=== PATIENT | male | born 1975 | race Hispanic/Latino ===

== ENCOUNTER 2020-04-07 13:03 | Inpatient (IN) | payer BC, SELFPAY ==
[~2020-04-07 13:03] MED LIST: Iopamidol 370 76% 100 ML VIAL ONE; Iopamidol 370 76% 50 ML VIAL FS ONE
[2020-04-07] MEDS ORDERED: Midazolam HCl 2 mg/2 ml Vial ONE (13:12)
[2020-04-07] MEDS ORDERED: Fentanyl 100 MCG/2 ML VIAL ONE (13:12)
[2020-04-07] MEDS ORDERED: Heparin 10,000 UNITS/ 10 ML VIAL ONE (13:22)
[2020-04-07] MEDS ORDERED: Clopidogrel Bisulfate 300 MG TAB ONE (13:29)
[2020-04-07] MEDS ORDERED: Nitroglycerin 100MG/250ML BOT 250 ML ONE (13:29)
[2020-04-07] MEDS ORDERED: Morphine 2 MG/ML VIAL SLOW IVP PRN (13:56)
[2020-04-07] MEDS ORDERED: Morphine 4 MG/ML VIAL SLOW IVP PRN (13:56)
[2020-04-07] MEDS ORDERED: Nitroglycerin 0.4 MG TAB (25 Tab Bottle) SL PRN (13:56)
[2020-04-07] MEDS ORDERED: Sodium Chloride 0.9% 1,000 ML IV SCH (14:00)
[2020-04-07 18:54] LABS: SARS-CoV-2 PCR by NAA Not Detected (NotDetected)
[2020-04-07 19:09] LABS: Troponin I 18.075 ng/mL (< 0.028)
[2020-04-07 20:58] VITALS: BMI 25.8
[2020-04-07 23:30] LABS: CKMB 59.3 ng/mL (0-6.6); Troponin I 25.614 ng/mL (< 0.028)
--- NOTE | 2020-04-08 05:30 | HP ---
HISTORY: Leo Meza is a 44-year-old male, who was transferred from [place] [facility] with an anterior STEMI. One or two months ago, he stated that he had 30 minutes of chest discomfort. Today at 11:30 a.m., he had onset of central chest pressure. He denied any nausea, vomiting, diaphoresis, or shortness of breath. He went to the emergency room in [place] and was found to have changes consistent with anterior STEMI. He was given 324 mg of aspirin, metoprolol 5 mg, nitroglycerin 0.4 mg sublingually x2, morphine 8 mg, heparin 4000 units followed by 1000 per hour drip and also potassium 40 mEq and transferred via helicopter. He continues to complain of chest discomfort and is transferred immediately to the ammunition assembly laborer upon arrival. PAST MEDICAL HISTORY: Hypertension. He was on medications in the past, but apparently has not taken any for seven or eight years. He denies any history of diabetes or hypercholesterolemia. MEDICATIONS: None. ALLERGIES: NONE. OPERATIONS: None. SOCIAL HISTORY: He smokes a pack per day. He occasionally drinks. FAMILY HISTORY: Negative for coronary artery disease. REVIEW OF SYSTEMS: A 10-point review of systems is unremarkable. PHYSICAL EXAMINATION: VITAL SIGNS: Blood pressure 125/76, pulse 82. HEENT: PERRL. NECK: Supple. CHEST: Expiratory wheezing. CARDIOVASCULAR: S1 and S2 normal without any S3, S4, or murmurs. ABDOMEN: Normal bowel sounds without tenderness. EXTREMITIES: No clubbing, cyanosis, or edema. NEUROLOGIC: Grossly intact. SKIN: Warm and dry. IMAGING DATA: EKG reveals normal sinus rhythm with [address] elevation, V1 through 4. LABORATORY DATA: White count 16,800, hemoglobin 15.7, hematocrit 46.7, platelets 346,000. Sodium 140, potassium 3.1, chloride 107, carbon dioxide 21, BUN 12, creatinine 1.04, glucose 129. Troponin I 0.017. IMPRESSION: 1. Anterior ST-elevation myocardial infarction. 2. Hypertension, noncompliant with medication. 3. Noncompliance probably in the future with medications as readily admitted by the patient. 4. Smoker. PLAN: The situation was discussed with the patient when he arrived. It is recommended he undergo emergent cardiac catheterization. Risks of this were discussed including , myocardial infarction, dye reaction, vascular injury, CVA, transfusion, limb loss, renal loss, etc. Also risk of intervention with PTCA and stent placement were discussed including , myocardial infarction, emergent CABG, restenosis, stent thrombosis, vessel perforation, etc. With great concern about compliance, a bare-metal stent will be placed if required. Job ID: [id number] MTDD
[2020-04-08 06:27] LABS: #Basophils 0.1 thou/uL (0.0-0.2); #Eosinphils 0.2 thou/uL (0.0-0.7); #Lymphocytes 2.1 thou/uL (1.20-3.40); #Monocytes 0.8 thou/uL (0.11-0.59); #Neutrophils 8.4 thou/uL (1.40-6.50); %Basophils 0.8 % (0.0-1.0); %Eosinophils 1.4 % (0.0-10.0); %Monocytes 7.2 % (0.0-10.0); %Neutrophils 72.7 % (42.0-75.0); Hemoglobin 14.5 g/dL (14.0-18.0); Mean Corpuscular Hemoglobin 31.3 pg (27.0-31.0); Mean Platelet Volume 7.2 fL (7.4-10.4); Platelet Count 294 thou/uL (130-400); Red Blood Cell (RBC) Count 4.63 mill/uL (4.70-6.10); White Blood Cell (WBC) Count 11.6 thou/uL (4.8-10.8)
[2020-04-08 06:32] LABS: Hemoglobin A1c 5.2 % (4.0-6.0)
[2020-04-08 06:46] LABS: ALT (SGPT) 30 U/L (8-55); AST (SGOT) 59 U/L (5-34); Albumin 3.9 g/dL (3.5-5.0); Alkaline Phosphatase 100 U/L (40-110); Anion Gap 12 mmol/L (10-20); BUN (Urea Nitrogen) 13 mg/dL (8.9-20.6); Bilirubin, Total 0.6 mg/dL (0.2-1.2); Calc. Creatinine Clearance 102 mL/min (70-130); Calcium 8.5 mg/dL (7.8-10.44); Carbon Dioxide 21 mmol/L (22-29); Cardiac Risk 5.3 (Less than 4.5); Chloride 109 mmol/L (98-107); Cholesterol 208 mg/dl (< 200 Desired); Globulin 2.4 g/dL (2.4-3.5); Glucose 114 mg/dL (70-105); HDL Cholesterol 39 mg/dL (>60 Neg Risk); LDL Cholesterol, Calculated 147 mg/dL; Potassium 4.4 mmol/L (3.5-5.1); Protein, Total 6.3 g/dL (6.0-8.3); Sodium 138 mmol/L (136-145); Triglycerides 110 mg/dL (Less than 150)
[2020-04-08 06:54] LABS: CKMB 51.4 ng/mL (0-6.6); Critical Call CKMB RESULT DECREASING; Critical Call Chem Troponin I RESULT DECREASING; Troponin I 6.999 ng/mL (< 0.028)
[2020-04-08] MEDS: Clopidogrel Bisulfate 75 MG TAB PO SCH (08:31)
[2020-04-08] MEDS ORDERED: Aspirin Chewable 81 MG TAB PO SCH (09:00)
[2020-04-08] MEDS ORDERED: Sodium Chloride 0.9% 20 ML ONE (15:01)
[2020-04-08] MEDS ORDERED: Atorvastatin Calcium 40 MG TAB PO SCH (21:00)
[2020-04-09] MEDS ORDERED: Aspirin 81 mg Enteric Coated Tablet PO SCH (09:00)
[2020-04-09] MEDS: Clopidogrel Bisulfate 75 MG TAB PO SCH (09:01)
[2020-04-09 16:02] VITALS: BP 111/66; TEMP 98.6
--- NOTE | 2020-04-10 07:54 | DIS ---
DATE OF ADMISSION: 04/07/2020 DATE OF DISCHARGE: 04/09/2020 DISCHARGE DIAGNOSES: 1. Anterior ST elevation myocardial infarction with peak troponin I 25.614, MB 59.3. 2. Bare metal stent placed in the mid LAD. 3. Ejection fraction of 45% to 50% with moderate anterior and apical hypokinesis. 4. Hypertension, noncompliance with medications. 5. Hypercholesterolemia. 6. Smoker. DISCHARGE DISPOSITION: The patient to be seen in 1 month with EKG, fasting lipid profile and comprehensive metabolic panel being performed. DISCHARGE MEDICATIONS: 1. Aspirin 81 daily. 2. Plavix 75 mg daily x1 month. 3. Atorvastatin 40 at bedtime. 4. Metoprolol 25 ER q.a.m. 5. Nitroglycerin p.r.n. HOSPITAL COURSE: Mr. Meza presented to the emergency room in [place] and had EKG changes of anterior STEMI. He does have history of hypertension, but has been noncompliant with medications for 7 or 8 years. One month prior, he also had another episode of chest discomfort. He was taken directly to the matlab developer when he arrived. There was 50% and 100% mid LAD lesion, 30% mid circumflex, 20% mid RCA, and 30% distal RCA. On admission, he states that he was very bad at taking medications and would not be sure he could take medicines for a year and so a bare-metal stent was placed. This was a Rebel 3.5 x 20 mm stent. His cholesterol was 208, triglycerides 110, HDL 39, LDL 147. We talked daily about a low-cholesterol diet. He was placed on atorvastatin. Also he was told on a daily basis that he should never use nicotine again. At the time of discharge, he was walking 700 feet in the [place] without symptoms. Job ID: [id number]
== END 2020-04-09 18:04 | disposition home or self-care (01) | DRG 249 ==
LOC: CCL 13:03 → PACU-TCU 13:13 → 2NO 04-08 18:02
PROVIDERS: ADMIT Internal Medicine Cardiovascular Disease; ATTEND Internal Medicine Cardiovascular Disease
PROC: B2111ZZ Fluoroscopy of Multiple Coronary Arteries using Low Osmolar Contrast (ICD-10-PCS; principal; 2020-04-07)
PROC: 02703DZ Dilation of Coronary Artery, One Artery with Intraluminal Device, Percutaneous Approach (ICD-10-PCS; 2020-04-07)
PROC: B2151ZZ Fluoroscopy of Left Heart using Low Osmolar Contrast (ICD-10-PCS; 2020-04-07)
PROC: 4A023N7 Measurement of Cardiac Sampling and Pressure, Left Heart, Percutaneous Approach (ICD-10-PCS; 2020-04-07)
DX: I21.09 ST elevation (STEMI) myocardial infarction involving other coronary artery of anterior wall (principal); I10 Essential (primary) hypertension; F17.200 Nicotine dependence, unspecified, uncomplicated; E78.00 Pure hypercholesterolemia, unspecified; Z20.822 Contact with and (suspected) exposure to COVID-19
CPT/HCPCS: 36415; 80053; 80061; 82553; 83036; 84484; 85025; 85347; 87635; 92928; 93005; 93010; 93458; 93798; 99152; C1876; J1644; J2250; J3010; Q9967; U0003; U0005

== ENCOUNTER 2021-10-02 00:36 | Observation (INO) | payer BC, SELFPAY ==
[2021-10-02 04:10] VITALS: BMI 26.4
[2021-10-02 04:57] LABS: Troponin I Less than 0.010 ng/mL (< 0.028)
[2021-10-02 07:16] LABS: Troponin I Less than 0.010 ng/mL (< 0.028)
[2021-10-02] MEDS ORDERED: ADENOSINE 60 MG/20 ML VIAL ONE (08:55)
[2021-10-02] MEDS ORDERED: hydrALAZINE 20 MG/ML VIAL SLOW IVP PRN (10:22)
[2021-10-02] MEDS ORDERED: Nitroglycerin 0.4 MG TAB (25 Tab Bottle) SL PRN (10:22)
[2021-10-02] MEDS ORDERED: Ondansetron ODT 4 MG TAB PO PRN (10:25)
[2021-10-02] MEDS ORDERED: Acetaminophen 325 MG TAB PO PRN (10:25)
[2021-10-02] MEDS ORDERED: Electrolyte Replacement Protocol 1 EACH FS SCH (10:30)
[2021-10-02 11:20] VITALS: TEMP 97.4
[2021-10-02 14:57] VITALS: BP 143/80
[2021-10-02] MEDS ORDERED: Atorvastatin Calcium 40 MG TAB PO SCH (21:00)
[2021-10-03] MEDS ORDERED: Aspirin 81 mg Enteric Coated Tablet PO SCH (09:00)
== END 2021-10-02 17:35 | disposition home or self-care (01) ==
LOC: 2SW 00:36 → OBSVTOIN 10:25 → INTOOBSV 10:25
PROVIDERS: ADMIT Student in an Organized Health Care Education/Training Program; ATTEND Student in an Organized Health Care Education/Training Program
DX: R07.89 Other chest pain (principal); I10 Essential (primary) hypertension; E78.5 Hyperlipidemia, unspecified; F17.210 Nicotine dependence, cigarettes, uncomplicated; I25.10 Atherosclerotic heart disease of native coronary artery without angina pectoris; I25.2 Old myocardial infarction; Z79.82 Long term (current) use of aspirin; Z79.899 Other long term (current) drug therapy; Z95.5 Presence of coronary angioplasty implant and graft; Z20.822 Contact with and (suspected) exposure to COVID-19
CPT/HCPCS: 36415; 78452; 84484; 93017; A9500; G0378; J0153; U0003; U0005